=== PATIENT | female | born 1995 | race African-American/Black ===

== ENCOUNTER 2018-02-20 08:05 | Inpatient (IN) | payer SELFPAY ==
[2018-02-20 09:57] VITALS: BMI 16.6
[2018-02-20] MEDS ORDERED: Dextrose 50% Abboject 50 ML SYRINGE SLOW IVP PRN (11:26)
[2018-02-20] MEDS ORDERED: Dextrose 5% in Water 1,000 ML IV PRN (11:26)
[2018-02-20] MEDS ORDERED: Ondansetron HCl/PF 4 MG/2 ML Vial IVP PRN (11:26)
--- NOTE | 2018-02-20 12:13 | HP ---
DATE OF ADMISSION: 02/20/2018 HISTORY OF PRESENT ILLNESS: Ms. Linda Renteria is a 22-year-old woman who presented to [facility] [place] yesterday following recurrent abdominal pain associated with bloating. She initially presented to [facility] [place] 2 days ago approximately 03:00 following insidious onset of abdominal pain which she described as crampy, associated with bloating and nausea. She was evaluated in the emergency department and discharged home. She was returned to the emergency department 1700 hours with recurrent episode this time associated with multiple episodes of nausea and nonbilious emesis. Workup at that time yesterday included CT scan of the abdomen and pelvis as well as a gallbladder ultrasound, both of which were consistent with partial small-bowel obstruction and cholelithiasis with no evidence of acute cholecystitis. The patient was placed on observation. Conservative management was initiated including nasogastric tube decompression, bowel rest and IV hydration. The nasogastric tube had returned over 700 mL of bilious effluent over the past 24 hours. The patient was transferred to [facility] to the care of the surgical service for evaluation and surgical management. The patient arrived by ground EMS hemodynamically stable. She reported passing flatus en route to this hospital admission. Shortly after arrival to the surgical floor, patient had a bowel movement. At this time, she denies any abdominal pain, nausea or vomiting. A nasogastric tube is returning scant nonbilious gastric effluent. Patient denies any fevers or chills. PAST MEDICAL HISTORY: Essentially unremarkable except for childhood gastroschisis. SURGICAL HISTORY: Pertinent for gastroschisis repair as a child. She is also status post ventral incisional herniorrhaphy in 2010. SOCIAL HISTORY: She is single and employed as a retail warehouse supervisor. She admits occasional intake of ethanol in moderate amounts, but denies any cigarette smoking or illicit drug abuse. FAMILY HISTORY: Notable for grandmother with diabetes mellitus and heart disease. Various other family members have history of endometriosis. PREHOSPITALIZATION MEDICATIONS: None. ALLERGIES: Patient denies any known drug allergies. REVIEW OF SYSTEMS: A 10-point review of systems essentially unremarkable except for as stated in past medical history and chief complaint. PHYSICAL EXAMINATION: GENERAL: This reveals a 22-year-old normally developed woman who is otherwise coherent and interactive and appears stated age. The patient is alert and oriented x3. She appears to be in no acute distress at the time of my evaluation. VITAL SIGNS: Includes blood pressure 111/74, pulse 84, respiratory rate is 18, temperature 98.2 degrees Fahrenheit, oxygen saturations 100% on room air. HEENT: Reveals normocephalic and atraumatic. Pupils are equal, round, and reactive to light and accommodation. Extraocular muscles are bilaterally. No sclerae icterus is present. Nasogastric tube is in place through the right nostril. This returns scant nonbilious gastric effluent. HEART: Reveals regular rate and rhythm, no murmurs or gallops auscultated. LUNGS: Clear to auscultation bilaterally. Breathing is regular and unlabored. ABDOMEN: Soft, nontender, nondistended. She has irregularly shaped midline incisional scars consistent with previous history of gastroschisis repair as well as ventral incisional herniorrhaphy. She clearly has no peritoneal signs on examination. Liver and spleen also nonpalpable below costal margins. EXTREMITIES: Reveals 2+ radial and pedal pulses bilaterally. No ankle edema is present. NEUROLOGIC: Examination reveals no focal deficits present. LABORATORY DATA AND IMAGING DATA: Laboratory studies have been ordered and pending at time of this dictation. I have personally reviewed the accompanying radiographic studies including a CT scan of the abdomen and pelvis which reveals slightly dilated loops of small bowel with no clear transition zone. There is gas; however, in the colon and rectum. I have also reviewed the abdominal ultrasound, which reveals a solitary gallstone measuring approximately 1.4 cm. There is no gallbladder wall thickening or pericholecystic fluid present. Common bile duct is normal in size for this patient's age at less than 2 mm in diameter. IMPRESSION: Acute partial small-bowel obstruction. PLAN: Nasogastric tube will be removed. The patient will be started on clear liquid diet which will be advanced as tolerated. Advised patient to ambulate ad bryant. There is clearly no acute surgical indication for this patient at this time. Above findings and plan discussed with patient who indicates understanding of the information given. I answered her questions. MELVIN
[2018-02-20 13:05] LABS: #Eosinphils 0.1 thou/uL (0.0-0.7); #Lymphocytes 1.3 thou/uL (1.20-3.40); #Monocytes 0.6 thou/uL (0.11-0.59); #Neutrophils 2.7 thou/uL (1.40-6.50); %Eosinophils 1.4 % (0.0-10.0); %Lymphocytes 27.7 % (21.0-51.0); %Monocytes 12.8 % (0.0-10.0); %Neutrophils 58.1 % (42.0-75.0); Hemoglobin 11.2 g/dL (12.0-16.0); Mean Corpuscular HGB CONC 33.5 g/dL (32.0-36.0); Mean Corpuscular Hemoglobin 29.5 pg (27.0-31.0); Mean Corpuscular Volume 88.1 fL (78.0-98.0); Mean Platelet Volume 8.2 fL (7.4-10.4); Platelet Count 161 thou/uL (130-400); RBC Distribution Width 11.5 % (11.5-14.5); Red Blood Cell (RBC) Count 3.79 mill/uL (4.20-5.40); White Blood Cell (WBC) Count 4.7 thou/uL (4.8-10.8)
[2018-02-20 13:12] LABS: ALT (SGPT) 11 U/L (8-55); AST (SGOT) 14 U/L (5-34); Albumin 3.6 g/dL (3.5-5.0); Alkaline Phosphatase 44 U/L (40-150); Anion Gap 11 mmol/L (10-20); BUN (Urea Nitrogen) 12 mg/dL (7.0-18.7); Bilirubin, Total 2.5 mg/dL (0.2-1.2); Calc. Creatinine Clearance 93 mL/min (70-130); Calcium 8.3 mg/dL (7.8-10.44); Carbon Dioxide 23 mmol/L (22-29); Chloride 105 mmol/L (98-107); Estimated GFR-MDRD Greater than 90; Globulin 2.2 g/dL (2.4-3.5); Glucose 75 mg/dL (70-105); Potassium 3.6 mmol/L (3.5-5.1); Protein, Total 5.8 g/dL (6.0-8.3); Sodium 135 mmol/L (136-145)
[2018-02-21 08:44] VITALS: BP 93/55; TEMP 98.1
--- NOTE | 2018-02-22 06:35 | DIS-2 ---
DATE OF ADMISSION: 02/20/2018 DATE OF DISCHARGE: 02/21/2018 DATE OF SERVICE: 02/21/2018 ADMITTING TEAM: Dr. Aguirre and Dr. Turner. DISCHARGING TEAM: Dr. Aguirre and Dr. Turner. CONSULTATIONS: None. PROCEDURES: None. DISCHARGE DIAGNOSIS: Small-bowel obstruction. SECONDARY DIAGNOSES: Unremarkable with the exception of childhood gastroschisis and post-ventral inc isional hemiatrophy in 2010. DISCHARGE MEDICATIONS: None. DISCONTINUED MEDICATIONS: None. HISTORY OF PRESENT ILLNESS AND HOSPITAL COURSE: This is a 22-year-old female who presented to [facility] [place] yesterday following abdominal pain with bloating. The patient had episodes of nausea and nonbilious vomiting. The patient had a CT scan of abdomen and pelvis with a bladder ul trasound, revealing small-bowel obstruction, cholelithiasis. No evidence of acute cholecystitis. Th e patient was placed on observation where she tolerated the NG tube well and no more episodes of vomi ting at the time. Yesterday afternoon, the patient had bowel movement and this morning NG tube was r emoved and the patient tolerated clear liquid diet. PHYSICAL EXAMINATION: VITAL SIGNS: At the time of discharge, temperature 98.1, pulse 97, respirations 16, pulse oximetry 9 4% on room air, blood pressure 93/55, asymptomatic exam at time of discharge. GENERAL: The patient was in no acute distress . HEART: Regular rhythm with no murmurs. LUNGS: Clear to auscultation. ABDOMEN: Soft, nontender to palpation. Bowel sounds present. DISPOSITION: Stable. DISCHARGE INSTRUCTIONS: 1. Location: Home. 2. Activity: As tolerated. 3. Diet: Slowly advanced from clear liquids to full diet. 4. Followup: Follow up with Dr. Aguirre and primary care physician in 1-2 weeks. Return to ER with i ncreased pain, nausea, vomiting, similar to previous episode. Dr. Aguirre saw this patient. We discussed the treatment plan.
== END 2018-02-21 11:45 | disposition home or self-care (01) | DRG 390 ==
LOC: SJJU 09:30
PROVIDERS: ADMIT Surgery; ATTEND Surgery
DX: K56.600 Partial intestinal obstruction, unspecified as to cause (principal); K80.20 Calculus of gallbladder without cholecystitis without obstruction; Z83.3 Family history of diabetes mellitus; Z82.49 Family history of ischemic heart disease and other diseases of the circulatory system
CPT/HCPCS: 36415; 80053; 85025